=== PATIENT | female | born 1960 | race Caucasian/White ===

== ENCOUNTER 2017-11-15 10:27 | Emergency (ER) | payer OTHER ==
--- NOTE | 2017-11-15 10:38 | EDM.PDOC ---
ED HPI GENERAL MEDICAL PROBLEM - General Chief Complaint: Fever Stated Complaint: fever, chills Time Seen by Provider: 11/15/17 10:30 Source of Information: Reports: Patient, Old Records ([facility] EMR. No paper hospital chart available.), Other (Family friend/ neighbor) History Limitations: Reports: No Limitations - History of Present Illness INITIAL COMMENTS - FREE TEXT/NARRATIVE: The patient was brought to the emergency room via private automobile by her close friend and neighbor for evaluation of fever, chills, and diffuse arthralgias with symptoms starting at about 23:00 hours yesterday evening. She did have a fever of 103 at 09:30 a.m. this morning with 1000 g of Tylenol taken at that time with improved fever at time of arrival to this facility. Her last immunotherapy was on 11/02 with next treatment scheduled for 11/23 by her history. She denies any current UTI symptoms or known exposure to infection. The patient denies any chest pain/pressure, heart flutter, dizziness, orthostasis, orthopnea, diaphoresis, paresthesias, recent decreased exercise tolerance, or any other anginal-type symptoms. No recent history of abdominal pain, heartburn, nausea, diarrhea, melena, gross hematochezia, or any food intolerance, including fatty foods, etc. although she did have one loose stool earlier this morning. The patient also denies any recent cough, wheezing, dyspnea, etc.. Her arthralgias have since resolved. No history of recent headaches, visual changes, diplopia, change in mental status, or other change in neurological status. She denies any pain or discomfort at this time. Onset: Gradual Onset Date: 11/14/17 Onset Time: 23:00 Duration: Other (As above) Location: Reports: Generalized. Denies: Radiates to Quality: Reports: Ache, Same as Previous Episode Severity: Moderate Improves with: Reports: None Worsens with: Reports: None Context: Reports: Other (As above). Denies: Sick Contact Associated Symptoms: Reports: Fever/Chills. Denies: Confusion, Chest Pain, Cough, Diaphoresis, Headaches, Loss of Appetite, Malaise, Nausea/Vomiting, Shortness of Breath, Syncope, Weakness Treatments POLITICAL WORKER: Reports: Acetaminophen - Related Data Allergies Allergy/AdvReac Type Severity Reaction Status Date / Time Penicillins Allergy Other Verified 12/05/17 13:20 Home Meds: Home Meds Benazepril [Lotensin] 20 mg PO DAILY 11/15/17 [History] Doxepin [SINEquan] 25 mg PO TID PRN 11/15/17 [History] Lidocaine/Prilocaine [Lidocaine-Prilocaine Cream] 1 applic TOP ASDIRECTED PRN [History] Past Medical History HEENT History: Reports: Hard of Hearing, Impaired Vision, Other (See Below). Denies: Allergic Rhinitis, Cataract, Glaucoma, Macular Degeneration, Retinal Detachment Other HEENT History: Patient wears glasses. Mild bilateral presbycusis with no current therapy required. Cardiovascular History: Reports: CAD, Hypertension, Other (See Below). Denies: Afib, Aneurysm, Arrhythmia, Heart Murmur, High Cholesterol, NH, PVD, Syncope Other Cardiovascular History: Possible coronary artery disease with evidence of anterior wall cardiac ischemia by EKG on 06/15/17. Respiratory History: Reports: Intubation, Previous, Pneumothorax, Other (See Below). Denies: Asthma, COPD, Intubation, Difficult, PE, Sleep Apnea, TB Other Respiratory History: Left lower lobe pulmonary mass with possible lung cancer by CT scan on 03/08/17 and lung biopsy in August 2017 as below. Additional nonspecific left thyroid mass and subcarinal mass by CT scan on 06/06/17 with workup still in progress. Postoperative right-sided pneumothorax at time of lung biopsy on 08/11/17. Gastrointestinal History: Reports: Cholelithiasis, Diverticulosis, Other (See Below). Denies: Celiac Disease, Chronic Constipation, Chronic Diarrhea, Colon Polyp, Fecal Incontinence, Gastritis, GERD, GI Bleed, Hepatitis, Inflammatory Bowel Disease, Irritable Bowel Syndrome, Jaundice, Pancreatitis Other Gastrointestinal History: Nonsymptomatic cholelithiasis CT scans as below. Genitourinary History: Reports: None. Denies: Acute Renal Failure, Chronic Renal Insuffiency, Renal Calculus, STD, Urinary Incontinence, UTI, Recurrent DETECTIVE LIEUTENANT History: Reports: Dysfunctional Uterine Bleeding, . Denies: Endometriosis, Fibroids, Spontaneous , Therapeutic : 2 Para: 2 LMP (Approximate): Other (See Below) Other DETECTIVE LIEUTENANT History: Menopause at age 48. Previous dysfunctional uterine bleeding with hormonal replacement therapy. Full term without complications during pregnancies or deliveries. Note previous atypical Pap smear and possible cervical dysplasia at age 25 with cryotherapy as below. Musculoskeletal History: Reports: Arthritis, Back Pain, Chronic, Fracture, Osteoarthritis, Other (See Below). Denies: Amputation, Fibromyalgia, Gout, Neck Pain, Chronic, Osteoporosis, RA, SLE Other Musculoskeletal History: Right rib fracture in 2014. Neurological History: Reports: None. Denies: Cerebral Aneurysms, Concussion, CVA, Headaches, Chronic, Head Trauma, Migraines, MS, Seizure, Speech Problems, TIA Psychiatric History: Reports: None. Denies: Abuse, Victim of, ADD, ADHD, Addiction, Anxiety, Dementia, Depression, Psych Hospitalization(s), PTSD, Suicide Attempt, Suicidal Ideation Endocrine/Metabolic History: Reports: Other (See Below). Denies: Diabetes, Gestational, Diabetes, Type I, Diabetes, Type II, Diabetes Mellitus, Type 3c, Hypothyroidism, IDDM Other Endocrine/Metabolic History: Nonspecific thyroid mass as above with no biopsy to this point. Hematologic History: Reports: Anemia, Iron Deficiency. Denies: Blood Transfusion(s) Immunologic History: Reports: Immunosuppression, Other (See Below). Denies: AIDS, HIV, SLE Other Immunologic History: Current immunotherapy for possible left lower lobe lung cancer as above. Oncologic (Cancer) History: Reports: Cervix, Lung, Thyroid, Other (See Below). Denies: Basal Cell Carcinoma, Breast, Colon, Hodgkin's Lymphoma, Leukemia, Lymphoma, Malignant Melanoma, Metastatic, Non-Hodgkin's Lymphoma, Squamous Cell Carcinoma Other Oncologic History: Unknown type of thyroid mass with additional subcarinal mass as above. Probable left lower lobe lung cancer as above. Cervical atypia with cryotherapy as below/above. Dermatologic History: Reports: None. Denies: Eczema, Psoriasis - Infectious Disease History Infectious Disease History: Reports: Chicken Pox (At age 29), Mononucleosis (At age 15). Denies: C-Difficile, Measles, Meningitis, MRSA, Mumps, Pertussis ( Whooping Cough), Rheumatic Fever, Rubella, Scarlet Fever, Shingles, TB, VRE - Past Surgical History Head Surgeries/Procedures: Reports: None HEENT Surgical History: Reports: Adenoidectomy, Oral Surgery, Other (See Below) . Denies: Eye Surgery, Laser Surgery, LASIK, Myringotomy w Tube(s), Naso-Sinus Surgery, Tonsillectomy Other HEENT Surgeries/Procedures: Adenoidectomy without tonsillectomy at age 28. [place] teeth extraction 2 in 1974 with additional teeth extractions. Cardiovascular Surgical History: Reports: None. Denies: Vascular Surgery Respiratory Surgical History: Reports: Lung Biopsies, Other (See Below) Other Respiratory Surgeries/Procedures: Lung biopsy on 08/11/17 complicated by secondary right-sided pneumothorax with chest tube therapy required. Bronchoscopy 2 in June 2017. GI Surgical History: Reports: Colonoscopy, Other (See Below). Denies: Appendectomy, Cholecystectomy, EGD, Hernia, Abdominal, Hernia, Inguinal, Hernia Repair/Other, Polypectomy Other GI Surgeries/Procedures: Last colonoscopy in 2015. Female Surgical History: Reports: Cervical Cryotherapy, Other (See Below). Denies: Section, D&C, Hysterectomy, Salpingo-Oophorectomy, Tubal Ligation Other Female Surgeries/Procedures: Cervical cryotherapy at age 25. Endocrine Surgical History: Reports: None. Denies: Thyroid Biopsy Neurological Surgical History: Reports: None. Denies: C-Spine, Discectomy, Laminectomy, Lumbar Spine, Sacral Spine, Spinal Fusion, Thoracic Spine, Vertebroplasty Musculoskeletal Surgical History: Reports: None. Denies: Arthroscopic Procedure , Carpal Tunnel, Ganglion Cyst, Joint Replacement, ORIF, Shoulder Surgery Oncologic Surgical History: Reports: Other (See Below). Denies: Biopsy of Breast Other Oncologic Surgeries/Procedures: Lung biopsy as above. Dermatological Surgical History: Reports: None - Past Imaging History Past Imaging History: Reports: CAT Scan (CTA of the chest on 03/08/17 with follow -up CT of the chest on 06/06/17.), Ultrasound (Negative thyroid ultrasound in July 2017.) Social & Family History - Tobacco Use Smoking Status *Q: Former Smoker Tobacco Use Within Last Twelve Months: Cigarettes Years of Tobacco use: 38 Packs/Tins Daily: 1 Used Tobacco, but Quit: Yes Month/Year Tobacco Last Used: Tobacco use between ages 18 and 56 with occasional previous cigar use Tobacco Use Comment: Discontinued smoking on 03/11/18. Smoking Cessation Information Provided To Patient: No Second Hand Smoke Exposure: No Second Hand Smoke Education Provided: No - Caffeine Use Caffeine Use: Reports: Soda (1 soda per day). Denies: Coffee, Energy Drinks, Tea - Alcohol Use Alcohol Use History: Yes Days Per Week of Alcohol Use: 0 Number of Drinks Per Day: 1 Total Drinks Per Week: 0 Total Drinks Per Week Comment: Usually mixed drink or glass of wine 2 times per month. No previous DWIs, problems with alcohol abuse, etc. 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 ED EXAM, GENERAL - Physical Exam Exam: See Below Exam Limited By: No Limitations General Appearance: Alert, WD/WN, No Apparent Distress Eye Exam: Bilateral Eye: EOMI, Normal Inspection (No nystagmus. Patient wearing glasses), PERRL Ears: Normal External Exam, Normal Canal, Normal TMs, Hearing Loss (Borderline bilateral presbycusis) Nose: Normal Inspection, Normal Mucosa, No Blood Throat/Mouth: Normal Inspection, Normal Lips, Normal Teeth (Multiple missing teeth with no acute caries), Normal Gums, Normal Oropharynx, Normal Voice, No Airway Compromise. No: Inflammation, Perioral Cyanosis Head: Atraumatic, Normocephalic. No: Facial Swelling, Facial Tenderness, Sinus Tenderness Neck: Normal Inspection, Supple, Non-Tender, Full Range of Motion. No: Carotid Bruit, Lymphadenopathy (L), Lymphadenopathy (R), Thyromegaly Respiratory/Chest: No Respiratory Distress, Lungs Clear, Normal Breath Sounds, No Accessory Muscle Use, Chest Non-Tender, Other (Steri-Strips on port site in right upper anterior chest wall region with no local signs of infection). No: Pleural Rub, Retractions Cardiovascular: Normal Peripheral Pulses, Regular Rate, Rhythm, No Edema, No Gallop, No JVD, No Murmur, No Rub. No: Gallop/S3, Gallop/S4, Friction Rub Peripheral Pulses: 2+: Radial (L), Radial (R) GI/Abdominal: Normal Bowel Sounds, Soft, Non-Tender, No Organomegaly, No Distention, No Abnormal Bruit, No Mass. No: Guarding (Female) Exam: Deferred Rectal (Female) Exam: Deferred Back Exam: Normal Inspection, Full Range of Motion. No: CVA Tenderness (L), CVA Tenderness (R), Muscle Spasm Extremities: Normal Inspection, Normal Range of Motion, Non-Tender, No Pedal Edema, Normal Capillary Refill. No: Jennifer's Sign Neurological: Alert, Oriented, CN II-XII Intact, Normal Cognition, Normal Gait, Normal Reflexes, No Motor/Sensory Deficits Psychiatric: Normal Affect, Normal Mood Skin Exam: Warm, Dry, No Rash, Wound/Incision (Steri-Strips as above). No: Diaphoretic, Ecchymosis, Petechiae Lymphatic: No Adenopathy Course - Vital Signs Last Recorded V/S: Last Vital Signs Temp 37.2 C 11/15/17 10:40 Pulse 84 11/15/17 10:40 Resp 16 11/15/17 10:40 BP 128/70 11/15/17 10:40 Pulse Ox 98 11/15/17 10:40 Vital Signs - 24 hr 11/15/17 10:40 Temperature [ 37.2 C Oral] Pulse, 84 Peripheral [ Right Pulse Oximetry] Respiratory 16 Rate Blood Pressure 128/70 [Right Upper Arm] O2 Sat by Pulse 98 Oximetry - Orders/Labs/Meds Orders: Active Orders 24 hr Category Date Time Status Chest 2V [CR] Urgent Exams 11/15/17 10:39 Taken CULTURE BLOOD [BC] Stat Lab 11/15/17 10:40 Received CULTURE BLOOD [BC] Stat Lab 11/15/17 11:10 Received CULTURE STREP A CONFIRMATION [RM] Stat Lab 11/15/17 10:42 Results CULTURE URINE [] Routine Lab 11/15/17 10:40 Ordered STREP SCRN A RAPID W CULT CONF [] Stat Lab 11/15/17 10:42 Ordered Heparin Sodium [Heparin Lock Flush 100 Units/ML] Med 11/15/17 10:42 Active 500 units FLUSH ASDIRECTED PRN Blood Culture x2 Reflex Set [OM.PC] Urgent Oth 11/15/17 10:39 Ordered Obtain Past Medical Record [OM.PC] Routine Oth 11/15/17 10:38 Active Medication Orders Heparin Sodium (Porcine) (Heparin Lock Flush 100 Units/Ml) 500 units FLUSH ASDIRECTED PRN PRN Reason: Other Last Admin: 11/15/17 10:48 Dose: 500 units Labs: Laboratory Tests 11/15/17 11/15/17 11/15/17 Range/Units 10:40 10:40 10:40 WBC 3.3 L (4.0-10.2) K/uL RBC 3.95 (3.77-5.09) M/uL Hgb 11.6 L (11.7-15.5) g/dL Hct 33.7 L (34.0-46.0) % MCV 85.3 (84.0-98.0) fL MCH 29.4 (28.2-33.3) pg MCHC 34.4 (31.7-36.0) g/dL RDW 14.3 H (11.2-14.1) % Plt Count 136 L (150-350) K/uL Neut % (Auto) 71.7 (45.0-80.0) % Lymph % (Auto) 14.5 (10.0-50.0) % [place] % (Auto) 12.0 (2.0-14.0) % Eos % (Auto) 0.9 (0.0-5.0) % Baso % (Auto) 0.9 (0.0-2.0) % Neut # (Auto) 2.38 (1.40-7.00) K/uL Lymph # (Auto) 0.48 L (0.50-3.50) K/uL [place] # (Auto) 0.40 (0.00-1.00) K/uL Eos # (Auto) 0.03 (0.00-0.50) K/uL Baso # (Auto) 0.03 (0.00-0.20) K/uL Sodium 130 L (136-145) mmol/L Potassium 4.0 (3.5-5.1) mmol/L Chloride 100 (98-107) mmol/L Carbon Dioxide 22.7 (21.0-32.0) mmol/L BUN 20 H (7-18) mg/dL Creatinine 1.09 (0.51-1.17) mg/dL Est Cr Clr Drug Dosing TNP Estimated GFR (MDRD) 52 mL/min Glucose 120 H (74-106) mg/dL Lactic Acid 0.8 (0.4-2.0) mmol/L Calcium 8.7 (8.5-10.1) mg/dL Total Bilirubin 0.8 (0.2-1.0) mg/dL AST 40 H (15-37) U/L ALT 38 (12-78) U/L Alkaline Phosphatase 62 (46-116) IU/L Total Protein 7.0 (6.4-8.2) g/dL Albumin 3.4 (3.4-5.0) g/dL Specimen Type Urine Color Urine Appearance Urine pH (5.0-9.0) Ur Specific [place] (1.005-1.030) Urine Protein (NEGATIVE) mg/dL Urine Glucose (UA) (NEGATIVE) mg/dL Urine Ketones (NEGATIVE) mg/dL Urine Occult Blood (NEGATIVE) Urine Nitrite (NEGATIVE) Urine Bilirubin (NEGATIVE) Urine Urobilinogen (0.2-1.0) E.U./dL Ur Leukocyte Esterase (NEGATIVE) Urine RBC Urine WBC Ur Epithelial Cells Other Crystals Amorphous Sediment Urine Bacteria Hyaline Casts Granular Casts Urine Mucus Urine Other Urine Yeast Urinalysis Comment 11/15/17 Range/Units 11:25 WBC (4.0-10.2) K/uL RBC (3.77-5.09) M/uL Hgb (11.7-15.5) g/dL Hct (34.0-46.0) % MCV (84.0-98.0) fL MCH (28.2-33.3) pg MCHC (31.7-36.0) g/dL RDW (11.2-14.1) % Plt Count (150-350) K/uL Neut % (Auto) (45.0-80.0) % Lymph % (Auto) (10.0-50.0) % [place] % (Auto) (2.0-14.0) % Eos % (Auto) (0.0-5.0) % Baso % (Auto) (0.0-2.0) % Neut # (Auto) (1.40-7.00) K/uL Lymph # (Auto) (0.50-3.50) K/uL [place] # (Auto) (0.00-1.00) K/uL Eos # (Auto) (0.00-0.50) K/uL Baso # (Auto) (0.00-0.20) K/uL Sodium (136-145) mmol/L Potassium (3.5-5.1) mmol/L Chloride (98-107) mmol/L Carbon Dioxide (21.0-32.0) mmol/L BUN (7-18) mg/dL Creatinine (0.51-1.17) mg/dL Est Cr Clr Drug Dosing Estimated GFR (MDRD) mL/min Glucose (74-106) mg/dL Lactic Acid (0.4-2.0) mmol/L Calcium (8.5-10.1) mg/dL Total Bilirubin (0.2-1.0) mg/dL AST (15-37) U/L ALT (12-78) U/L Alkaline Phosphatase (46-116) IU/L Total Protein (6.4-8.2) g/dL Albumin (3.4-5.0) g/dL Specimen Type Urincc Urine Color Yellow Urine Appearance Clear Urine pH 5.5 (5.0-9.0) Ur Specific [place] 1.015 (1.005-1.030) Urine Protein Trace H (NEGATIVE) mg/dL Urine Glucose (UA) Negative (NEGATIVE) mg/dL Urine Ketones Negative (NEGATIVE) mg/dL Urine Occult Blood Trace-intact H (NEGATIVE) Urine Nitrite Negative (NEGATIVE) Urine Bilirubin Negative (NEGATIVE) Urine Urobilinogen 0.2 (0.2-1.0) E.U./dL Ur Leukocyte Esterase Negative (NEGATIVE) Urine RBC Cancelled Urine WBC Cancelled Ur Epithelial Cells Cancelled Other Crystals Cancelled Amorphous Sediment Cancelled Urine Bacteria Cancelled Hyaline Casts Cancelled Granular Casts Cancelled Urine Mucus Cancelled Urine Other Cancelled Urine Yeast Cancelled Urinalysis Comment Cancelled Urine microscopic evaluation canceled secondary to insufficient specimen. Urine specimen was set up for culture and sensitivity, however. Blood cultures 2 were collected Microbiology 11/15/17 10:42 Group A Streptococcus Rapid Screen - Final Throat NEGATIVE STREP A SCREEN Meds: Medications Generic Name Dose Route Start Last Admin Trade Name Freq PRN Reason Stop Dose Admin Heparin Sodium (Porcine) 500 units 11/15/17 10:42 11/15/17 10:48 Heparin Lock Flush 100 Units/Ml FLUSH 500 units ASDIRECTED PRN Administration Other - Radiology Interpretation Free Text/Narrative:: Chest x-ray, PA and lateral, shows evidence of moderate COPD changes with possible fibrotic component but no cardiomegaly, CHF, pulmonary infiltrates, pneumothorax, etc. Mild osteoarthritic and osteoporotic changes in the thoracic spine. Note Port-A-Cath noted in right upper chest wall region with tip in appropriate position. No mass noted. Note, that official chest x-ray report was received prior to patient's discharge. Departure - Departure Time of Disposition: 12:35 Disposition: Home, Self-Care 01 Condition: Good Clinical Impression: Elevated LFTs, Hyponatremia, Fever and neutropenia Lung cancer Qualifiers: Laterality: left Lung location: lower lobe of lung Qualified Code(s): C34.32 - Malignant neoplasm of lower lobe, left bronchus or lung COPD (chronic obstructive pulmonary disease) Qualifiers: COPD type: emphysema Emphysema type: panlobular Qualified Code(s): J43.1 - Panlobular emphysema Hypertension Qualifiers: Hypertension type: essential hypertension Qualified Code(s): I10 - Essential ( primary) hypertension Osteoarthritis Qualifiers: Osteoarthritis location: multiple joints Osteoarthritis type: primary Qualified Code(s): M15.0 - Primary generalized (osteo)arthritis - Discharge Information *PRESCRIPTION DRUG MONITORING PROGRAM REVIEWED*: Not Applicable *COPY OF PRESCRIPTION DRUG MONITORING REPORT IN PATIENT NICK: Not Applicable Referrals: Louise Huitron MD [Primary Care Provider] - Forms: ED Department Discharge, ED Department Discharge Additional Instructions: 1. Followup with your regular provider in 10-14 days as directed with consideration of repeat chest x-ray and/or blood work depending on your symptoms and clinical course. Bring these discharge instructions with you to that visit. 2. Tylenol 650 mg by mouth every 4 hours and/or OTC ibuprofen 2-3 tabs by mouth every 6 hours with food as directed./needed. 3. Hygiene issues as discussed. 4. Congratulations on stopping smoking. 5. Notify us WALLY if your oncologist has not called you an antibiotic prescription today. - Problem List & Annotations (1) Fever and neutropenia SNOMED Code(s): 850267375 Code(s): D70.9 - NEUTROPENIA, UNSPECIFIED; R50.81 - FEVER PRESENTING WITH CONDITIONS CLASSIFIED ELSEWHERE Status: Acute Priority: High Current Visit : Yes Onset Date: 11/15/17 Annotation/Comment:: Mild pancytopenia with current immunotherapy for her probable lung cancer as above. Blood cultures 2 and urine specimen for culture and sensitivity as above with results pending. By her history her oncologist is already planning to call her in an antibiotic, although they did want her initially evaluated in our emergency room. Continue to observe closely. Close follow-up by regular provider as per discharge instructions. Note lactic acid was normal with no clinical evidence of sepsis. (2) Lung cancer SNOMED Code(s): 589501050 Code(s): C34.90 - MALIGNANT NEOPLASM OF UNSP PART OF UNSP BRONCHUS OR LUNG Status: Acute Priority: High Current Visit: Yes Annotation/Comment:: By patient history there is still somewhat a debate concerning her exact diagnosis. Previous thyroid mass was apparently not observed at follow-up ultrasound by her history. Continue close follow-up and treatment by her oncologist as above. Qualifiers: Laterality: left Lung location: lower lobe of lung Qualified Code(s): C34.32 - Malignant neoplasm of lower lobe, left bronchus or lung (3) COPD (chronic obstructive pulmonary disease) SNOMED Code(s): 25520711 Code(s): J44.9 - CHRONIC OBSTRUCTIVE PULMONARY DISEASE, UNSPECIFIED Status : Acute Priority: Medium Current Visit: Yes Onset Date: 11/15/17 Annotation/Comment:: COPD by today's chest x-ray with no current medical therapy. She denies any bronchitic type symptoms despite current fever. Consider PFTs, pre-and post depending on her clinical course. Qualifiers: COPD type: emphysema Emphysema type: panlobular Qualified Code(s): J43.1 - Panlobular emphysema (4) Elevated LFTs SNOMED Code(s): 547445501, 211706526 Code(s): R94.5 - ABNORMAL RESULTS OF LIVER FUNCTION STUDIES Status: Acute Priority: Medium Current Visit: Yes Annotation/Comment:: Mild LFTs elevation. Consider fatty liver. Continue to observe closely by her regular provider. No abdominal complaints. Note history of previous nonsymptomatic cholelithiasis. (5) Hypertension SNOMED Code(s): 09336809 Code(s): I10 - ESSENTIAL (PRIMARY) HYPERTENSION Status: Chronic Priority : Medium Current Visit: Yes Annotation/Comment:: Stable in the emergency room despite the patient not taking her medications this morning. Qualifiers: Hypertension type: essential hypertension Qualified Code(s): I10 - Essential (primary) hypertension (6) Hyponatremia SNOMED Code(s): 78781574 Code(s): E87.1 - HYPO-OSMOLALITY AND HYPONATREMIA Status: Acute Priority : High Current Visit: Yes Onset Date: 11/15/17 Annotation/Comment:: Observe for now. Close follow-up by regular provider and her oncologist. (7) Osteoarthritis SNOMED Code(s): 296852922 Code(s): M19.90 - UNSPECIFIED OSTEOARTHRITIS, UNSPECIFIED SITE Status: Chronic Priority: Medium Current Visit: Yes Annotation/Comment:: Stable by history with customer care representative. Qualifiers: Osteoarthritis location: multiple joints Osteoarthritis type: primary Qualified Code(s): M15.0 - Primary generalized (osteo)arthritis - Problem List Review Problem List Initiated/Reviewed/Updated: Yes - My Orders Last 24 Hours: My Active Orders 11/15/17 10:38 Obtain Past Medical Record [OM.PC] Routine 11/15/17 10:39 Chest 2V [CR] Urgent Blood Culture x2 Reflex Set [OM.PC] Urgent 11/15/17 10:40 CULTURE BLOOD [BC] Stat CULTURE URINE [RM] Routine 11/15/17 10:42 CULTURE STREP A CONFIRMATION [RM] Stat STREP SCRN A RAPID W CULT CONF [RM] Stat Heparin Sodium [Heparin Lock Flush 100 Units/ML] 500 units FLUSH ASDIRECTED PRN 11/15/17 11:10 CULTURE BLOOD [BC] Stat - Assessment/Plan Last 24 Hours: My Active Orders 11/15/17 10:38 Obtain Past Medical Record [OM.PC] Routine 11/15/17 10:39 Chest 2V [CR] Urgent Blood Culture x2 Reflex Set [OM.PC] Urgent 11/15/17 10:40 CULTURE BLOOD [BC] Stat CULTURE URINE [RM] Routine 11/15/17 10:42 CULTURE STREP A CONFIRMATION [RM] Stat STREP SCRN A RAPID W CULT CONF [RM] Stat Heparin Sodium [Heparin Lock Flush 100 Units/ML] 500 units FLUSH ASDIRECTED PRN 11/15/17 11:10 CULTURE BLOOD [BC] Stat Assessment:: As above Plan: As above. Extensive precautions were given to the patient and her friend, who are in agreement with the treatment plan. See Patient Instructions for further treatment and plan.
[2017-11-15 11:07] LABS: CHLORIDE,CL 100 mmol/L (98-107); SODIUM,NA 130 mmol/L (136-145)
== END 2017-11-15 12:35 | disposition home or self-care (01) ==
LOC: LL.ED 10:27
DX: D70.9 Neutropenia, unspecified (principal); E87.1 Hypo-osmolality and hyponatremia; I10 Essential (primary) hypertension; C34.32 Malignant neoplasm of lower lobe, left bronchus or lung; R79.89 Other specified abnormal findings of blood chemistry; J43.1 Panlobular emphysema; M15.0 Primary generalized (osteo)arthritis; Z87.891 Personal history of nicotine dependence; Z88.0 Allergy status to penicillin; Z79.899 Other long term (current) drug therapy
CPT/HCPCS: 36415; 71046; 80053; 81003; 83605; 85025; 87040; 87081; 87086; 87430; 99284; J1642

== ENCOUNTER → 2019-02-19 | Outpatient (CLI) | payer OTHER ==
[2019-02-19 18:36] LABS: CHLORIDE,CL 102 mmol/L (98-107); SODIUM,NA 139 mmol/L (136-145)
== END ==
LOC: LL.LAB 17:45
PROVIDERS: ATTEND Internal Medicine Hematology & Oncology
DX: C64.9 Malignant neoplasm of unspecified kidney, except renal pelvis (principal); C78.00 Secondary malignant neoplasm of unspecified lung
CPT/HCPCS: 36415; 80053; 84443; 85025